=== PATIENT | male | born 1955 ===

== ENCOUNTER 2019-05-08 03:39 | Observation (INO) | payer OTHER, BC ==
[~2019-05-08] VITALS: Ht 175.3 cm; Wt 104.3 kg
[~2019-05-08 03:39] MED LIST: AID PO; FIBER PO; KRIL500C2 PO; LOR5/325 PO; MULT-1203 PO; PSYL0.4C2 PO; TURM538C; TURM538C PO; VIT-9 PO
[2019-05-08] MEDS ORDERED: fentaNYL CITR 100 MCG/2 ML AMP ONE ×3 (08:27→15:19)
[2019-05-08] MEDS ORDERED: KETAMINE HCL-NS 50 MG/5 ML SYR ONE (08:28)
[2019-05-08] MEDS ORDERED: LIDOCAINE MPF 1% 5 ML VIAL ONE (08:29)
[2019-05-08] MEDS ORDERED: PROPOFOL EMUL(*) 10MG/ML 20 ML 20 ML ONE (08:29)
[2019-05-08] MEDS ORDERED: ONDANSETRON 4 MG/2 ML VIAL ONE (08:29)
[2019-05-08] MEDS ORDERED: DEXAMETHASONE SOD PHOS 10MG/ML ONE (08:29)
[2019-05-08] MEDS ORDERED: LIDO/EPI 1% MPF 1:200,000 30ML ONE (08:41)
[2019-05-08] MEDS ORDERED: BUPIV/EPI 0.25% 1:200,000 50ML INFIL ONE (08:41)
[2019-05-08] MEDS ORDERED: FAMOTIDINE 20 MG TAB PO ONE (10:00)
[2019-05-08] MEDS ORDERED: MIDAZOLAM 2 MG/2 ML VIAL IVP PRN (10:00)
[2019-05-08] MEDS ORDERED: NORMOSOL R SOLN(*) 1000 ML BAG 1,000 ML IV PRN (10:00)
[2019-05-08] MEDS ORDERED: LIDOCAINE/SOD BICARB 8.4% SYR ID ONE (10:00)
[2019-05-08 10:26] VITALS: BP 132/80
[2019-05-08] MEDS ORDERED: ceFAZolin(*) 2GM/D5W 50ML 50 ML IVPB ONE (10:30)
[2019-05-08] MEDS ORDERED: ROPIVACAINE 0.2% 20 ML VIAL ONE (11:36)
[2019-05-08] MEDS ORDERED: ROPIVACAINE 0.2% 400 MG/200ML 250 ML CONINFUS ONE (11:45)
[2019-05-08] MEDS ORDERED: PHENYLEPHRINE 10 MG/1 ML VIAL ONE (12:34)
[2019-05-08] MEDS ORDERED: PROMETHAZINE 25 MG/ML 1 ML AMP IVP PRN (15:15)
[2019-05-08] MEDS ORDERED: BISACODYL 10 MG SUPP PR PRN (15:15)
[2019-05-08] MEDS ORDERED: MAGNESIUM HYDROXIDE* 30ML UDCP PO PRN (15:15)
[2019-05-08] MEDS ORDERED: diphenhydrAMINE 25 MG CAP PO PRN (15:15)
[2019-05-08] MEDS ORDERED: MAGNESIUM CITRATE 300 ML BTL PO PRN (15:15)
[2019-05-08] MEDS ORDERED: KCL/D5LR 20 MEQ/1000 ML PREMIX 1,000 ML IV PRN (15:15)
[2019-05-08] MEDS ORDERED: FLUSH 10 ML SYR IVP PRN (15:15)
[2019-05-08] MEDS ORDERED: ACETAMINOPHEN 500 MG TAB PO PRN (15:15)
[2019-05-08] MEDS ORDERED: ONDANSETRON 4 MG/2 ML VIAL IVP PRN (15:15)
[2019-05-08] MEDS: KETOROLAC 30 MG/ML VIAL IVP PRN (15:39)
[2019-05-08] MEDS ORDERED: HYDROmorphone HCL 2 MG/ML SDV ONE (15:44)
[2019-05-08] MEDS ORDERED: NORMOSOL R SOLN(*) 1000 ML BAG 1,000 ML IV ONE (15:50)
[2019-05-08] MEDS ORDERED: ACETAMINOPHEN(*)1000 MG/100 ML 100 ML IVPB ONE (15:52)
[2019-05-08 17:19] VITALS: BP 140/84
[2019-05-08 19:28] VITALS: BP 151/94
[2019-05-08] MEDS: ceFAZolin(*) 1 GM VIAL 1 GM in NS(*) 0.9% 100 ML MINI-BAG 100 ML IVPB SCH (20:43)
[2019-05-08 23:59] VITALS: BP 109/90
[2019-05-09] MEDS: KETOROLAC 30 MG/ML VIAL IVP PRN ×2 (00:07→08:06)
[2019-05-09] MEDS: ceFAZolin(*) 1 GM VIAL 1 GM in NS(*) 0.9% 100 ML MINI-BAG 100 ML IVPB SCH ×2 (03:37→12:00)
[2019-05-09 03:40] VITALS: BP 118/76
[2019-05-09 06:54] VITALS: BP 127/72
[2019-05-09 07:37] VITALS: BP 139/90
--- NOTE | 2019-05-09 08:31 | OPERATIVE REPORT 1 ---
EVENT DATE: May 08, 2019 SURGEON: Loi Gamez MD ANESTHESIOLOGIST: Edgard Rivera MD ANESTHESIA: General. DIRECTOR OF SUSTAINABILITY PROGRAMS: Sascha Hunter PA-C PREOPERATIVE DIAGNOSIS Intra-articular displaced calcaneus fracture on the left side. POSTOPERATIVE DIAGNOSIS Intra-articular displaced calcaneus fracture on the left side. PROCEDURE PERFORMED Open reduction internal fixation, left calcaneus. ESTIMATED BLOOD LOSS Minimal. IV FLUIDS Minimal. TOURNIQUET TIME Under 2 hours. DESCRIPTION OF PROCEDURE Patient was brought to the operating room and placed in the lateral position. He was prepped and draped in normal sterile fashion using Prevail. Sterile stockinettes and U-drape were placed on the lower extremity. Stockinette was incised from above knee and held with Coban. Esmarch was then used to exsanguinate the lower extremity and tourniquet turned up to 300 mmHg. At this point, we made a hockey stick incision directly over the lateral portion of the calcaneus going directly down to bone around the corner as it goes up the back of the heel. As we went distally, we bluntly dissected to make sure there was no sural nerve injury. We were able to identify the sural nerve and protect it. Sharp dissection was done all the way down to bone. Blunt dissection to bring up the whole full-thickness flap off the calcaneus was done. I was able to get under the peroneal tendons and come up underneath the subtalar joint. At this point, I placed three pins into the talus to hold back the flap without putting tension across it. I then took the lateral wall off the calcaneus but left it intact. I was able to then find the large piece of the subtalar joint, which was up and actually wedged between the fibula and the talus. Once I was able to free that and bring that down, I freed the fracture that went all the way back of the hindfoot, the tuberosity. I then cleaned the area out where the subtalar posterior facet fracture was. I was actually able to bring the piece all the way almost out, leaving its attachments, and then cleaning the fracture line to make sure there were no pieces in it. I then pulled down the posterior fragment, put it back under fluoroscopy in multiple different views and trying I was able to get it to an anatomic position. I put a K-wire across it to hold it. At this point, I placed a lamina pediatric pathologist in to dany out the heel, the tuber of the calcaneus, bring it down, and then I placed a very large pin into the tuberosity and I was able to bring it out of varus and translate it medially and with the lamina pediatric pathologist get it out to length. Once that was in appropriate position, I placed a K-wire across it to hold it in that position and then brought fluoroscopy in on the axial to make sure it corrected everything, which I had. The subtalar joint looked perfect. Therefore, I then took the anterior process and realigned it, brining it down and rotating it, placing a K-wire across it. At this point, I felt I had appropriate reduction. I then bone grafted the central area, which was now vacant, with DBX and croutons. I then placed a locking plate on the side, measured it out to be a medium locking plate. I then took the plate off and placed one screw across the posterior facet to hold it in position in a lag manner using a 2.7 Synthes screw. Then I put the locking calcaneus Synthes plate on the outside, checked on fluoroscopy and had excellent alignment. I then did a nonlocking screw to bring the plate down to its position. Once I had it there, I then put multiple locking screws, two distally and four to six posteriorly to hold the height and hold length. Once that was done, I removed all the K-wires. I then made sure the subtalar joint was free, which it was. I could actually see into the subtalar joint, which looked really good. I then brought the x-ray in, looked at AP and axial and found that we had corrected the varus, corrected the alignment and got the subtalar joint into appropriate position. Angle of Gissane had also been reconstructed. At this point, we closed using 3-0 Monocryl and 3-0 Nylon in a Allgower-Donati stitch around the corner and then I used joanie for the rest. Adaptic, 4 x 4's big bulky Medrano dressing. The patient went to recovery with no complications. MARINO
[2019-05-09] MEDS: oxyCODON/ACET (*)5/325MG (CII) 1 TAB TAB PO PRN ×2 (09:37→15:01)
[2019-05-09 10:24] VITALS: Ht 175.3 cm; Wt 104.3 kg
--- NOTE | 2019-05-09 10:27 | NUR ---
Physical Therapy Impression PT eval complete. Pt reports improved pain management. Pt is Cristina for transfers and ambulation with use of knee scooter and demonstrates good safety. PT instruction for use of crutches for stair negotiation, pt completed with SBA. Pt is safe to d/c home from a mobility stand point when medically appropriate, with all PT goals met. Pt may be I) in room. No further PT visits planned. Physical Therapy Goals 1: pt to be Cristina bed mobility 2: Pt to be Cristina transfers 3: Pt to ambulate 150' with knee scooter and Cristina 4: Pt to ac/desc 1 step with SBA and crutches 5: Pt to adhere to NWB of L) LE with all mobility Patient's Goals
[2019-05-09 12:19] VITALS: BP 134/82
[2019-05-09] MEDS ORDERED: HYDR-627 PO (14:37)
[2019-05-09] MEDS ORDERED: PROM12.557 PO (14:38)
[2019-05-09] MEDS ORDERED: PROM-110 PO (14:38)
== END 2019-05-09 14:40 | disposition home or self-care (01) ==
LOC: OR 03:39 → MED 17:15 → INTOOBSV 17:15
PROVIDERS: ADMIT Orthopaedic Surgery; ATTEND Orthopaedic Surgery
DX: S92.062A Displaced intraarticular fracture of left calcaneus, initial encounter for closed fracture (principal)
CPT/HCPCS: 28415; 97161; G0378; J0131; J0690; J1100; J1170; J1885; J2001; J2370; J2405; J2704; J2795; J3010; J3490